=== PATIENT | female | born 1935 | race Caucasian/White ===

== ENCOUNTER → 2016-05-09 | Outpatient (CLI) | payer OTHER ==
[~2016-05-09] MED LIST: AGGRENOX1 CAPSULE; AGGRENOX1 CAPSULE PO; CLARINEX5 MG PO; DYAZIDE PO; FUROSEMIDE40 MG PO; NORVASC10 MG PO; PREVACID30 MG PO; PROAIR HFA8.5 GM IH; PROZAC20 MG PO; TOPROL XL50 MG PO; TRICOR48 MG PO; XANAX0.25 MG PO; ZOCOR40 MG PO
== END | disposition home or self-care (01) ==
LOC: OPR 09:00 → EDSTATUS 09:00 → OPR 09:02
PROC: 0BBJ3ZX Excision of Left Lower Lung Lobe, Percutaneous Approach, Diagnostic (ICD-10-PCS; principal; 2016-05-09)
DX: C78.02 Secondary malignant neoplasm of left lung (principal); C25.9 Malignant neoplasm of pancreas, unspecified; Z87.891 Personal history of nicotine dependence; I10 Essential (primary) hypertension; K21.9 Gastro-esophageal reflux disease without esophagitis; J45.20 Mild intermittent asthma, uncomplicated; G47.33 Obstructive sleep apnea (adult) (pediatric); E78.5 Hyperlipidemia, unspecified; E11.9 Type 2 diabetes mellitus without complications; Z88.1 Allergy status to other antibiotic agents; Z88.2 Allergy status to sulfonamides; Z88.6 Allergy status to analgesic agent; Z88.8 Allergy status to other drugs, medicaments and biological substances
CPT/HCPCS: 71010; 77012; 87070; 87075; 87205; 88305; 88341 TC; 88342 TC; J3010